=== PATIENT | male | born 1980 | race Caucasian/White ===

== ENCOUNTER 2017-05-29 07:57 | Emergency (ER) | payer MEDICAID, MEDICARE ==
[~2017-05-29] VITALS: Ht 180.3 cm; Wt 105.0 kg
[2017-05-29 08:04] VITALS: PULSE 105; RESP 16; TEMP 98; O2SAT 98
--- NOTE | 2017-05-29 08:53 | PD ---
HPI Chief Complaint: Musculoskeletal Complaint Time Seen by Provider: 08:44 Travel History International Travel<30 days: No Contact w/Intl Traveler<30days: No Traveled to known affect area: No History of Present Illness HPI 37-year-old male presents emergency department for evaluation of the spasm in his left tricep. Patient states that since having rotator cuff surgery sometimes his triceps spasms. He tells me this is very painful. Rates it a 10 out of 10. Tells me he has taken 3 muscle relaxants without any relief in his symptoms. He tells me that he is here on vacation and he needs something more for pain control. Denies any chest pain or tightness. No new injury. No focal deficits or weakness. PFSH Past Medical History Medical History: Denies Significant Hx Social History Tobacco Use: No Allergies-Medications (Allergen,Severity, Reaction): Coded Allergies: No Known Allergies (Unverified , 05/29/17) Reported Meds & Prescriptions Reported Meds & Active Scripts Active Robaxin (Methocarbamol) 500 Mg Tab 500 Mg PO QID PRN Ibuprofen 800 Mg Tab 800 Mg PO Q8H PRN Reported Gabapentin 800 Mg Tab 800 Mg PO TID Review of Systems Except as stated in HPI: all other systems reviewed are Neg Physical Exam Narrative GENERAL: Well-nourished, well-developed male patient, ambulatory and in no acute distress. SKIN: Focused skin assessment warm/dry. HEAD: Normocephalic. EYES: No scleral icterus. Mild left lateral scleral injection. No drainage. NECK: Supple, trachea midline. No JVD or lymphadenopathy. CARDIOVASCULAR: Elevated rate and rhythm without murmurs, gallops, or rubs. RESPIRATORY: Breath sounds equal bilaterally. No accessory muscle use. GASTROINTESTINAL: Abdomen soft, non-tender, nondistended. MUSCULOSKELETAL: No cyanosis, or edema. Patient is holding his left upper extremity flexed at the elbow above his head. He is walking around the room. He is agitated and unwilling to sit in the bed for his assessment. The tricep is nontender. It is soft and palpable. No obvious deformities. No contusions or bruising. No edema. Distal pulses are palpable. BACK: Nontender without obvious deformity. No CVA tenderness. Data Data Last Documented VS Vital Signs Date Time Temp Pulse Resp B/P (MAP) Pulse Ox O2 Delivery O2 Flow Rate FiO2 05/29/17 09:30 97.8 78 16 130/85 (100) 99 Orders Orders Ketorolac Inj (Toradol Inj) (05/29/17 09:00) Orphenadrine Inj (Norflex Inj) (05/29/17 09:00) Ed Discharge Order (05/29/17 09:02) MDM Medical Decision Making Medical Screen Exam Complete: Yes Emergency Medical Condition: Yes Medical Record Reviewed: Yes Differential Diagnosis Muscle spasm versus strain versus rupture Narrative Course 37-year-old male presents emergency department for evaluation of the spasm of his left tricep. The muscle is soft to palpation. He has full flexion- extension of the elbow without difficulty. Distal pulses are palpable. Patient is treated with Toradol and Norflex. He is counseled on care. He is encouraged to follow-up with primary care provider and return immediately with any acute worsening symptoms. Patient is not happy with this. He feels that he should be given stronger pain control. I explained for muscle spasms he needs muscle relaxant. I advised warm compresses and light massage. He verbalizes his dismay with his prescription and leaves. Diagnosis Primary Impression: Spasm of muscle Referrals: Primary Care Physician Patient Instructions: General Instructions, Muscle Spasm (ED) Additional Instructions: WARM COMPRESSES AND LIGHT MASSAGE FOLLOW UP WITH A PRIMARY CARE PROVIDER RETURN TO ED WITH ACUTE WORSENING OF SYMPTOMS Med/Other Pt SpecificInfo: Prescription(s) given Scripts Methocarbamol (Robaxin) 500 Mg Tab 500 MG PO QID Y for MUSCLE SPASM, #20 TAB 0 Refills Prov: Toshia Cuenca 05/29/17 Ibuprofen (Ibuprofen) 800 Mg Tab 800 MG PO Q8H Y for PAIN SCALE 1 TO 10, #30 TAB 0 Refills Prov: Toshia Cuenca 05/29/17 Disposition: 01 DISCHARGE HOME Condition: Stable Toshia Cuenca May 29, 2017 08:53
[2017-05-29] MEDS ORDERED: GABA800T PO (08:56)
[2017-05-29] MEDS ORDERED: KETOROLAC TROMETHAMINE 60 MG/2 ML (IM) VIAL IM ONE (09:00)
[2017-05-29] MEDS ORDERED: ORPHENADRINE INJ 60 MG/2 ML AMP IM ONE (09:00)
[2017-05-29] MEDS ORDERED: ROBA500T PO (09:10)
[2017-05-29] MEDS ORDERED: IBUP1TAB7 PO (09:10)
[2017-05-29 09:30] VITALS: BP 130/85; TEMP 97.8
== END 2017-05-29 09:32 | disposition home or self-care (01) ==
LOC: NEPD 07:57
DX: M62.838 Other muscle spasm (principal)
CPT/HCPCS: 96372; 99283; J1885; J2360